=== PATIENT | male | born 1985 | race Caucasian/White ===

== ENCOUNTER 2020-01-18 11:14 | Outpatient (CLI) | payer OTHER, SELFPAY ==
[2020-01-20 12:01] LABS: SARS-CoV-2 RNA Undetected (Undetected); SARS-CoV-2 Specimen Source Nasopharynx
== END 2020-01-18 11:34 ==
PROVIDERS: PCP Specialist/Technologist Athletic Trainer; Visit Provider Specialist/Technologist Athletic Trainer
DX: Z20.828 Contact with and (suspected) exposure to other viral communicable diseases (principal); Z11.59 Encounter for screening for other viral diseases; J06.9 Acute upper respiratory infection, unspecified
CPT/HCPCS: 87449; U0003

== ENCOUNTER 2020-07-16 13:27 | Outpatient (REF) | payer OTHER, SELFPAY ==
[2020-07-19 15:53] LABS: Patient Race White; SARS-CoV-2 RNA Undetected (Undetected); SARS-CoV-2 Specimen Source Nasal
== END 2020-07-16 13:47 ==
LOC: NCHCN 13:27
PROVIDERS: PCP Specialist/Technologist Athletic Trainer; Visit Provider Family Medicine
DX: Z20.828 Contact with and (suspected) exposure to other viral communicable diseases (principal)
CPT/HCPCS: U0003

== ENCOUNTER → 2021-06-05 04:03 | Outpatient (CLI) | payer BC, SELFPAY ==
--- NOTE | 2021-06-05 | DI.RAD_ITS ---
Exam(s) XR PELVIS AP EXAM: XR PELVIS AP CLINICAL HISTORY: SACROILIAC AND PELVIC PAIN, M53.3,R10.2. TECHNIQUE: 2D digital imaging was performed. COMPARISON: CR PELVIS AP from 03/13/2009 FINDINGS: Deformity of the symphysis pubis is noted but is probably chronic and related to what occurred on (diastasis evident at that time). There are no obvious acute fractures. If clinically indic ated follow-up CT scan can be performed. IMPRESSION: DATA REPOSITORY: RADIATION DOSE DELIVERED:
--- NOTE | 2021-06-05 | DI.RAD_ITS ---
Exam(s) XR SACROILIAC JOINTS EXAM: XR SACROILIAC JOINTS CLINICAL HISTORY: PELVIC AND SACROILIAC PAIN,R10.2,M53.3. TECHNIQUE: 2D digital imaging was performed. COMPARISON: No exams were available for comparison FINDINGS: Chronic deformity of the symphysis pubis noted as is a what appears to be a probably healed fracture of the inferior pubic ramus on the right side. Sacroiliac joints appear unremarkable on these views. IMPRESSION: DATA REPOSITORY: RADIATION DOSE DELIVERED:
== END ==
PROVIDERS: PCP Specialist/Technologist Athletic Trainer; Visit Provider Family Medicine
DX: R10.2 Pelvic and perineal pain (principal); M53.3 Sacrococcygeal disorders, not elsewhere classified
CPT/HCPCS: 72170; 72202